=== PATIENT | female | born 1950 | race Caucasian/White ===

== ENCOUNTER 2017-03-09 15:34 | Emergency (ER) | payer OTHER ==
[~2017-03-09] VITALS: Ht 167.6 cm; Wt 101.3 kg
[~2017-03-09 15:34] MED LIST: LISI-360 PO
[2017-03-09 16:00] VITALS: BP 142/70; PULSE 78; RESP 18; TEMP 98.4; O2SAT 96
[2017-03-09] MEDS ORDERED: LISI10TA3 PO (16:08)
--- NOTE | 2017-03-09 16:13 | PD ---
HPI Chief Complaint: Fall Time Seen by Provider: 16:00 Travel History International Travel<30 days: No Contact w/Intl Traveler<30days: No Traveled to known affect area: No History of Present Illness HPI 67-year-old female here for evaluation after mechanical fall. 4 hours ago she tripped and fell, landing on her outstretched hands and knees. She is complaining of mild soreness to the proximal right arm, left volar proximal hand , anterior knees bilaterally. Symptoms are mild, aggravated by palpation. Denies any range of motion limitation, numbness or tingling or weakness. No other complaints. [facility] Past Medical History Diminished Hearing: No Hypertension: Yes ?: Not Past Surgical History Gynecologic Surgery: Yes (HYSTERECTOMY 1998) Hysterectomy: Yes Social History Alcohol Use: No Tobacco Use: No Substance Use: No Allergies-Medications (Allergen,Severity, Reaction): Coded Allergies: No Known Allergies (Verified Adverse Reaction, Unknown, 03/09/17) Reported Meds & Prescriptions Reported Meds & Active Scripts Active Reported Lisinopril 10 Mg Tab 10 Mg PO DAILY Review of Systems Except as stated in HPI: all other systems reviewed are Neg Physical Exam Narrative GENERAL: Well-nourished female in no acute distress SKIN: Warm and dry. Small contusion to the left hand thenar eminence region. Minor contusion to the proximal right arm. Minor contusions to anterior knees bilaterally. HEAD: Atraumatic. Normocephalic. EYES: Pupils equal and round. No scleral icterus. No injection or drainage. ENT: No nasal bleeding or discharge. Mucous membranes pink and moist. NECK: Trachea midline. No JVD. CARDIOVASCULAR: Regular rate and rhythm. No murmur appreciated. RESPIRATORY: No accessory muscle use. Clear to auscultation. Breath sounds equal bilaterally. MUSCULOSKELETAL: Skin as noted above. Slight point tenderness to palpation of the left hand thenar eminence. Full range of motion of the upper and lower extremities. No deformities. NEUROLOGICAL: Awake and alert. No obvious cranial nerve deficits. Motor grossly within normal limits. Normal speech. Data Data Last Documented VS Vital Signs Date Time Temp Pulse Resp B/P (MAP) Pulse Ox O2 Delivery O2 Flow Rate FiO2 03/09/17 16:08 Room Air 03/09/17 16:00 98.4 78 18 142/70 (94) 96 Orders Orders Hand, Complete ([id number]) (03/09/17 ) [facility] Medical Decision Making Medical Screen Exam Complete: Yes Emergency Medical Condition: Yes Medical Record Reviewed: Yes Differential Diagnosis Contusion, strain, sprain, fracture Narrative Course Physical examination is reassuring. She appears to have contusions to the right arm, left hand, bilateral knees. X-ray of the left hand was performed as she had focal tenderness the left thenar eminence and this was negative. She is stable for discharge. Diagnosis Primary Impression: Multiple contusions Additional Instructions: Ice the affected area several times a day 15 minutes at a time. Over-the- counter Tylenol or Motrin as needed for pain per dosing instructions on bottle. Follow-up with primary care physician as needed and return for any emergent medical conditions. Med/Other Pt SpecificInfo: No Change to Meds Disposition: 01 DISCHARGE HOME Condition: Stable Vijay Coughlin Mar 09, 2017 16:13
--- NOTE | 2017-03-09 16:51 | RADRPT ---
EXAM DATE/TIME: 03/09/2017 16:38 [place] COMPARISON: No previous studies available for comparison. INDICATIONS : Lateral left hand pain. Patient fell today. MEDICAL HISTORY : None. SURGICAL HISTORY : None. ENCOUNTER: Initial ACUITY: 1 day PAIN SCORE: 6/10 LOCATION: Left lateral hand. FINDINGS: Three views of the left hand demonstrate no fracture or dislocation. Mineralization is within normal limits. No soft tissue abnormality or radiopaque foreign body is identified. There is mild osteoarthr itis at the first carpometacarpal joint. CONCLUSION: No acute left hand abnormality is identified. Michael Elliott MD on March 09, 2017 at 16:48 Board Certified Radiologist. This report was verified electronically.
== END 2017-03-09 17:01 | disposition home or self-care (01) ==
LOC: PHEFT 15:34
DX: S60.222A Contusion of left hand, initial encounter (principal); S40.021A Contusion of right upper arm, initial encounter; S80.02XA Contusion of left knee, initial encounter; S80.01XA Contusion of right knee, initial encounter; W01.0XXA Fall on same level from slipping, tripping and stumbling without subsequent striking against object, initial encounter
CPT/HCPCS: 73130; 99283

== ENCOUNTER 2017-07-03 11:41 | Emergency (ER) | payer OTHER ==
[~2017-07-03 11:41] MED LIST changes: -LISI-360 PO; +LISI10TA3 PO
[2017-07-03 12:04] VITALS: BP 143/74; PULSE 78; RESP 20; TEMP 97.8; O2SAT 96
[2017-07-03] MEDS ORDERED: HYDR12.57 PO (12:58)
--- NOTE | 2017-07-03 12:59 | PD ---
HPI Chief Complaint: Hypertension Time Seen by Provider: 12:38 Travel History International Travel<30 days: No Contact w/Intl Traveler<30days: No Traveled to known affect area: No History of Present Illness HPI 67-year-old female complains of hypertension with a blood pressure at home of approximately 175/85. She called her primary care doctor who had her double the hydrochlorothiazide dose from 12.5-25. The patient states she will do this today. She has no complaint consistent with hypertensive emergency. Patient speaks Tunisian better than Jamaican however preferred to communicate with the undersigned in Jamaican. Translation service. [facility] Past Medical History Diminished Hearing: No Hypertension: Yes Past Surgical History Gynecologic Surgery: Yes (HYSTERECTOMY 1998) Hysterectomy: Yes Social History Alcohol Use: No Tobacco Use: No Substance Use: No Allergies-Medications (Allergen,Severity, Reaction): Coded Allergies: No Known Allergies (Verified Adverse Reaction, Unknown, 03/09/17) Reported Meds & Prescriptions Reported Meds & Active Scripts Active Reported Lisinopril 10 Mg Tab 10 Mg PO DAILY Review of Systems Except as stated in HPI: all other systems reviewed are Neg General / Constitutional: No: Fever Physical Exam Narrative GENERAL: 67-year-old female pleasant well-nourished well-developed no acute distress Vital Signs Date Time Temp Pulse Resp B/P (MAP) Pulse Ox O2 Delivery O2 Flow Rate FiO2 07/03/17 12:04 97.8 78 20 143/74 (97) 96 Room Air SKIN: Warm and dry. HEAD: Atraumatic. Normocephalic. EYES: Pupils equal and round. No scleral icterus. No injection or drainage. ENT: No nasal bleeding or discharge. Mucous membranes pink and moist. NECK: Trachea midline. No JVD. CARDIOVASCULAR: Regular rate and rhythm. RESPIRATORY: No accessory muscle use. Clear to auscultation. Breath sounds equal bilaterally. GASTROINTESTINAL: Abdomen soft, non-tender, nondistended. Hepatic and splenic margins not palpable. MUSCULOSKELETAL: Extremities without clubbing, cyanosis, or edema. No obvious deformities. NEUROLOGICAL: Awake and alert. No obvious cranial nerve deficits. Motor grossly within normal limits. Five out of 5 muscle strength in the arms and legs. Normal speech. PSYCHIATRIC: Appropriate mood and affect; insight and judgment normal. Data Data Last Documented VS Vital Signs Date Time Temp Pulse Resp B/P (MAP) Pulse Ox O2 Delivery O2 Flow Rate FiO2 07/03/17 12:04 97.8 78 20 143/74 (97) 96 Room Air MDM Medical Decision Making Medical Screen Exam Complete: Yes Emergency Medical Condition: Yes Differential Diagnosis Hypertensive crisis, hypertensive urgency, hypertension Narrative Course Patient's blood pressure is 143/73 here and she is ready for discharge. Return precautions discussed. Diagnosis Primary Impression: Hypertension Qualified Codes: I10 - Essential (primary) hypertension Referrals: Primary Care Physician 2 days Med/Other Pt SpecificInfo: No Change to Meds Disposition: 01 DISCHARGE HOME Condition: Stable Iván Leslie MD Jul 03, 2017 12:59
== END 2017-07-03 13:28 | disposition home or self-care (01) ==
LOC: PHED 11:41
DX: I10 Essential (primary) hypertension (principal)
CPT/HCPCS: 99281

== ENCOUNTER 2017-07-14 20:56 | Emergency (ER) | payer OTHER ==
[~2017-07-14] VITALS: Ht 165.1 cm; Wt 103.3 kg
[~2017-07-14 20:56] MED LIST changes: +HYDR12.57 PO
[2017-07-14 21:35] VITALS: BP 135/63; PULSE 72; RESP 16; TEMP 97.9; O2SAT 96
[2017-07-14] MEDS ORDERED: LIDOCAINE HCL 1% 30 ML VIAL INFIL ONE (22:15)
[2017-07-14] MEDS ORDERED: TETANUS/DIPHTHERIA TOXOID ADULT 0.5 ML VIAL IM ONE (22:15)
--- NOTE | 2017-07-14 22:19 | PD ---
HPI Chief Complaint: Injury Time Seen by Provider: 22:09 Travel History International Travel<30 days: No Contact w/Intl Traveler<30days: No Traveled to known affect area: No History of Present Illness HPI The patient is a 67-year-old female who presents to the emergency department for laceration to the second digit of the left hand. The patient accidentally cut herself with a knife earlier today over the radial aspect of the second digit left hand. The laceration bled initially but is currently stopped. She is right-hand dominant. She denies any difficulty with flexion-extension of the affected digit. She denies any associated numbness or tingling. The patient cannot recall her last tetanus shot. The patient is mostly Danish- speaking, friend translates at bedside per her request. She denies any other injuries. [facility] Past Medical History Narrative Medical Hypertension Diminished Hearing: No Hypertension: Yes Past Surgical History Narrative Surgical Hysterectomy Gynecologic Surgery: Yes (HYSTERECTOMY 1998) Hysterectomy: Yes Social History Alcohol Use: No Tobacco Use: No Substance Use: No Allergies-Medications (Allergen,Severity, Reaction): Coded Allergies: No Known Allergies (Verified Adverse Reaction, Unknown, 03/09/17) Reported Meds & Prescriptions Reported Meds & Active Scripts Active Reported Hydrochlorothiazide 12.5 Mg Cap 12.5 Mg PO DAILY Lisinopril 10 Mg Tab 40 Mg PO DAILY Review of Systems Except as stated in HPI: all other systems reviewed are Neg Musculoskeletal: Positive: Pain Skin: Positive Other (Laceration to the second digit left hand) Neurologic: No: Paresthesia, Sensory Disturbance Hematologic/Lymphatic: No: Easy Bruising Physical Exam Narrative GENERAL: Awake, alert, pleasant 67-year-old female who appears her stated age and is in no acute respiratory distress. SKIN: Focused skin assessment warm/dry. HEAD: Atraumatic. Normocephalic. MUSCULOSKELETAL: The patient has a 2 cm laceration to the radial aspect of the second digit over the proximal phalanx that is diagonal. There is mild soft tissue involvement. She is able to fully flex at the MCP, PIP, DIP. She is able to fully extend the digit. Capillary refill is less than 2 seconds. Left radial pulses 2+ and symmetric. NEUROLOGICAL: Awake and alert. No obvious cranial nerve deficits. Motor grossly within normal limits. Normal speech. Sensation is symmetric over the radial, ulnar, distal aspect of the affected digit. PSYCHIATRIC: Appropriate mood and affect; insight and judgment normal. Data Data Last Documented VS Vital Signs Date Time Temp Pulse Resp B/P (MAP) Pulse Ox O2 Delivery O2 Flow Rate FiO2 07/14/17 21:35 97.9 72 16 135/63 (87) 96 Orders Orders Lidocaine 1% Inj (Xylocaine 1% Inj) (07/14/17 22:15) Tetanus/Diphtheria Tox Adult (Tetanus/Di (07/14/17 22:15) Lidocaine Pf 1% Inj (Xylocaine-Mpf 1% In (07/14/17 22:30) Wound Care (07/14/17 22:38) Ed Discharge Order (07/14/17 22:38) [facility] Medical Decision Making Medical Screen Exam Complete: Yes Emergency Medical Condition: Yes Medical Record Reviewed: Yes Differential Diagnosis Differential diagnosis includes laceration, nerve injury, arterial injury, tendon injury, puncture wound, open fracture. Narrative Course The patient had a digital block of the second digit left hand with 1% lidocaine using a 27-gauge needle. The patient's wound was irrigated, cleaned, and sutured in a single layer fashion. The patient is advised to have the sutures removed in 10 days. Wound care instructions. Keep area clean and dry. Polysporin with a dressing was applied. The patient was discharged. Procedures Procedure Narrative LACERATION LOCATION: Second digit left hand LENGTH: 2 cm NUMBER OF STITCHES/HOOD: 4 REPAIR: The area of the laceration was prepped with Betadine and sterilely draped. Digital block with 1% lidocaine using a 27-gauge needle was performed. The wound was copiously irrigated and explored without evidence of foreign body, tendon injury or neurovascular injury. The wound was closed using 4-0 nylon. This was a single layer repair. A sterile dressing was applied. The patient was advised to keep the dressing clean and dry. Patient tolerated the procedure well. Diagnosis Primary Impression: Laceration of finger Qualified Codes: S61.211A - Laceration without foreign body of left index finger without damage to nail, initial encounter Patient Instructions: General Instructions Additional Instructions: Tylenol and/or Motrin as needed for pain. Keep the area clean and dry. Polysporin twice a day. Wound care instructions. Suture removal in approximately 10 days. Med/Other Pt SpecificInfo: No Change to Meds Disposition: DISCHARGE HOME Condition: Stable Je Barba MD Jul 14, 2017 22:19
[2017-07-14] MEDS ORDERED: LIDOCAINE HCL 1% PF 10 ML VIAL INFIL ONE (22:30)
== END 2017-07-14 23:11 | disposition home or self-care (01) ==
LOC: PHEFT 20:56
DX: S61.211A Laceration without foreign body of left index finger without damage to nail, initial encounter (principal); W26.0XXA Contact with knife, initial encounter; I10 Essential (primary) hypertension; Z79.899 Other long term (current) drug therapy; Z23 Encounter for immunization
CPT/HCPCS: 12001; 90471; 90714

== ENCOUNTER 2017-07-23 21:06 | Emergency (ER) | payer OTHER ==
[~2017-07-23] VITALS: Ht 175.3 cm; Wt 103.8 kg
[2017-07-23 21:16] VITALS: BP 124/60; PULSE 71; RESP 14; TEMP 97.8; O2SAT 97
--- NOTE | 2017-07-23 21:43 | PD ---
HPI Chief Complaint: Laceration/Skin Injury Time Seen by Provider: 21:23 Travel History International Travel<30 days: No Contact w/Intl Traveler<30days: No Traveled to known affect area: No History of Present Illness HPI 67-year-old female arrives 9 days after suture placement for removal. No numbness tingling weakness. No fever. No significant pain of the affected digit, second edition of the left hand. PFSH Past Medical History Diminished Hearing: No Hypertension: Yes Tetanus Vaccination: < 5 Years ?: Not Past Surgical History Gynecologic Surgery: Yes (HYSTERECTOMY 1998) Hysterectomy: Yes Social History Alcohol Use: No Tobacco Use: No Substance Use: No Allergies-Medications (Allergen,Severity, Reaction): Coded Allergies: No Known Allergies (Verified Adverse Reaction, Unknown, 07/23/17) Reported Meds & Prescriptions Reported Meds & Active Scripts Active Reported Hydrochlorothiazide 12.5 Mg Cap 12.5 Mg PO DAILY Lisinopril 10 Mg Tab 40 Mg PO DAILY Review of Systems General / Constitutional: No: Fever, Chills HENT: No: Vertigo Cardiovascular: No: Palpitations Respiratory: No: Cough Physical Exam Narrative GENERAL: She is a 7-year-old female no acute distress pleasant SKIN: Warm and dry. 5 sutures in the radial aspect of the left second digit approximated well-healed curvilinear laceration. Range of motion of the affected digit is normal. HEAD: Atraumatic. Normocephalic. Data Data Last Documented VS Vital Signs Date Time Temp Pulse Resp B/P (MAP) Pulse Ox O2 Delivery O2 Flow Rate FiO2 07/23/17 21:16 97.8 71 14 124/60 (81) 97 Orders Orders Ed Discharge Order (07/23/17 21:42) [facility] Medical Decision Making Medical Screen Exam Complete: Yes Emergency Medical Condition: Yes Differential Diagnosis Laceration, cellulitis, abrasion Narrative Course Sutures removed. Wounds well-healed. Diagnosis Primary Impression: Encounter for removal of sutures Med/Other Pt SpecificInfo: No Change to Meds Disposition: 01 DISCHARGE HOME Condition: Stable Iván Leslie MD Jul 23, 2017 21:42
== END 2017-07-23 22:02 | disposition home or self-care (01) ==
LOC: PHEFT 21:06
DX: Z48.02 Encounter for removal of sutures (principal); I10 Essential (primary) hypertension; Z79.899 Other long term (current) drug therapy
CPT/HCPCS: 99281